=== PATIENT | male | born 1960 | race Caucasian/White ===

== ENCOUNTER → 2019-06-20 | Outpatient (CLI) | payer MEDICARE ==
[2019-06-20 20:20] LABS: Protein, Urine Quantitative 23.6 mg/dL (0.0-11.9)
[2019-06-20 20:25] LABS: Creatinine Urine 83.5 mg/dL (27.00-270.00)
== END | disposition home or self-care (01) ==
LOC: LAB SHORT 16:38 → LAB 16:38
PROVIDERS: Internal Medicine Nephrology
DX: N18.2 Chronic kidney disease, stage 2 (mild) (principal); D63.1 Anemia in chronic kidney disease; N25.81 Secondary hyperparathyroidism of renal origin; E55.9 Vitamin D deficiency, unspecified; E78.00 Pure hypercholesterolemia, unspecified; D51.8 Other vitamin B12 deficiency anemias; D52.8 Other folate deficiency anemias; D50.9 Iron deficiency anemia, unspecified; R76.9 Abnormal immunological finding in serum, unspecified; R94.5 Abnormal results of liver function studies; R94.6 Abnormal results of thyroid function studies
CPT/HCPCS: 81050; 82043; 82570; 84156; 84300

== ENCOUNTER 2023-02-10 07:12 | Day surgery (SDC) | payer MEDICARE ==
[~2023-02-10] VITALS: Ht 172.7 cm; Wt 85.6 kg
[2023-02-10] VITALS (21 sets, daily range): BP systolic 113–213; BP diastolic 64–113
[~2023-02-10 07:12] MED LIST: AMLO10 PO; ATOR40TA PO; Alphagan P5 ML BOTHEYES; CATAPRES-TTS 31 EAC2 TOP; DOCU100 PO; DORZOPSO BOTHEYES; FISH OIL 1,2001 EAC7 PO; INSULIN AS100 UNIT/9 SC; LATA.005SO BOTHEYES; LISI20 PO; NOVOLIN 70100 UNIT/3 SC; SERT100 PO; TOCO1000 PO
--- NOTE | 2023-02-10 08:00 | NUR ---
PT AMBULATORY TO DAY SURGERY WITH HELP FROM MOTHER HE IS BLIND. History, Chart, Medications and Allergies reviewed before start of procedure. Lungs clear T/O to Auscultation. Patient confirms NPO status and agrees with scheduled surgery. Pre-Op teaching done. Pt verbalizes understanding. Patient States Post-Procedure ride home has been arranged.
--- NOTE | 2023-02-10 08:24 | NUR ---
02/10/23 0824 Golria Clayton HISTORY, CHART, MEDICATIONS AND ALLERGIES REVIEWED BEFORE START OF PROCEDURE. PATIENT CONFIRMS NPO STATUS AND AGREES WITH SCHEDULED PROCEDURE. 3-LEAD EKG REVIEWED WITH PHYSICIAN PRIOR TO START OF PROCEDURE. MONITOR INTACT WITH CONTINUOUS PULSE OXIMETRY,CAPNOGRAPHY, 3-LEAD EKG, INTERMITTENT BP. SUPPLEMENTAL O2 TO BE TITRATED THROUGHOUT PROCEDURE TO MAINTAIN O2 SATURATION ABOVE 90%. PATIENT DETERMINED TO BE ASA APPROPRIATE FOR PROPOFOL SEDATION PRIOR TO START OF PROCEDURE BY .
--- NOTE | 2023-02-10 09:05 | NUR ---
PT HYPERTENSIVE, DENIES ANY DISCOMFORT OR SYMPTOMS. NOTIFIED, NO ORDERS, STATES OKAY TO DISCHARGE HOME. PT DECLINED FLUIDS POST-PROCEDURE. CALM & COOPERATIVE, MOTHER AT BEDSIDE.
--- NOTE | 2023-02-10 09:24 | NUR ---
Discharge instructions reviewed with patient. Patient verbalizes understanding. Copy given to patient to take home. Discharged via wheelchair to private car for ride home.
== END 2023-02-10 09:20 | disposition home or self-care (01) ==
LOC: ORSCMMR 07:12 → ORD 08:00 → ORSCMMR 08:00
PROVIDERS: Internal Medicine Gastroenterology
PROC: 0DBN8ZX Excision of Sigmoid Colon, Via Natural or Artificial Opening Endoscopic, Diagnostic (ICD-10-PCS; principal; 2023-02-10 08:00)
PROC: 0DBK8ZX Excision of Ascending Colon, Via Natural or Artificial Opening Endoscopic, Diagnostic (ICD-10-PCS; principal; 2023-02-10 08:00)
PROC: 0DBL8ZX Excision of Transverse Colon, Via Natural or Artificial Opening Endoscopic, Diagnostic (ICD-10-PCS; principal; 2023-02-10 08:00)
PROC: 0DBP8ZX Excision of Rectum, Via Natural or Artificial Opening Endoscopic, Diagnostic (ICD-10-PCS; principal; 2023-02-10 08:00)
DX: K92.1 Melena (principal); Z80.0 Family history of malignant neoplasm of digestive organs; K63.5 Polyp of colon; D12.2 Benign neoplasm of ascending colon; D12.3 Benign neoplasm of transverse colon; K62.1 Rectal polyp; E10.8 Type 1 diabetes mellitus with unspecified complications; H40.9 Unspecified glaucoma; I10 Essential (primary) hypertension; E78.00 Pure hypercholesterolemia, unspecified; Z79.899 Other long term (current) drug therapy
CPT/HCPCS: 82947; 88305; J2704; J7120

== ENCOUNTER → 2025-08-03 | Outpatient (CLI) | payer MEDICARE ==
[2025-08-03 21:12] LABS: Creatinine, Urine Random 116.0 mg/dL (27.00-270.00); Microalbumin, Random Urine 45.4 mg/L (0.000-20.000)
== END ==
LOC: LAB SHORT 17:21 → LAB 17:21
DX: E10.319 Type 1 diabetes mellitus with unspecified diabetic retinopathy without macular edema (principal)
CPT/HCPCS: 82043; 82570